=== PATIENT | female | born 2000 | race Caucasian/White ===

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

== ENCOUNTER 2022-01-05 14:30 | Emergency (ER) | payer BC, OTHER, SELFPAY ==
[2022-01-05 14:32] VITALS: BP 150/81; PULSE 75; RESP 16; TEMP 36.8; O2SAT 97; BMI 33.4
--- NOTE | 2022-01-05 15:25 | ED_ITS ---
Documented by User: PEDRO Brown 01/06/22 07:07 HPI - Allergic Reaction General: Chief complaint: Allergic Reaction Stated complaint: RASH AND FEELS THROAT SWELLING Time Seen by Provider: 01/05/22 15:21 History of Present Illness: HPI narrative: Patient is a 21-year-old female comes to the ED with allergic reaction. Symptoms started last night. She started developing a pruritic rash that started on her abdomen and wrapped around her flank to her back bilaterally. Rash also had a burning sensation as well. Today she started feeling some chest tightness and a little bit of throat swelling and tightness as well. By the time she arrived here in the ED her voice started changing a little bit as well. 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 Denies any recent contact with pineapples, soaps, detergents, lotions. Patient did say she received her Covid 19 shot on Tuesday and is unsure if she could be having a reaction from it. Ny ent denies any chance of being and says she is currently on her menstrual period. Associated symptoms: Deny abdominal pain, nausea or vomiting Review of Systems Const: Denies: fever(s), chills or fatigue Eyes: Denies: change in vision or eye discomfort ENMT: Denies: throat pain, odynophagia, nasal discharge or nasal congestion Card: Denies: chest pain, palpitations, edema, swelling of feet/ankles, dyspnea on exertion or orthopnea Resp: Denies: dyspnea, productive cough or non-productive cough GI: Denies: abdominal pain, nausea, vomiting, diarrhea, constipation or hematochezia : Denies: flank pain, dysuria or hematuria Musc: Denies: neck pain, back pain or extremity swelling Skin/Breast: Denies: rash or new lesions Neuro: Denies: headache(s), numbness in extremities or weakness in extremities All/Imm: Reports: urticaria (pruritic rash on abdomen), throat swelling and food intolerance (allergic to pineapple.) [facility] ED PFSH: Medical History 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 History of 2019 novel coronavirus disease (COVID-19) Surgical History H/O knee surgery (~12/2019) ACL reconstruction [place] teeth extracted Family History Mother Anesthesia complication Diabetes Hyperlipidemia Stroke Grandfather CAD (coronary artery disease) Lung disease Family/Other Cancer Suicide paternal grandfather Family history of thyroid problem Maternal great aunt Father Hypertension Grandmother Psychiatric illness Other Chronic kidney disease (CKD) Denies family history of Clotting disorder Dementia Bleeding disorder Family history of premature coronary artery disease Social History Smoking and tobacco status: never smoked Alcohol intake: never Additional social history: - Tobacco use: Denies Alcohol use: Denies Drug use: Denies Female Reproductive History: Date of last menstrual period: 02/12/21 Physical Exam Const: COMMON NORMALS: patient oriented x3 and alert GENERAL APPEARANCE: cooperative and comfortable OTHER: Patient's voice sounded kind of tight and raspy. She says her voice started changing by the time she got to the ED. HENMT: COMMON NORMALS: normocephalic HEAD & SCALP: normocephalic MOUTH: Normal oral and palatal mucosa present, lip normal and tongue normal THROAT: posterior oropharynx normal and uvula midline Neck/C-Spine: COMMON NORMALS: supple GENERAL: Yes normal visual inspection Resp: COMMON NORMALS: normal respiratory effort, No retractions, No use of accessory muscles and clear to auscultation bilaterally AUSCULTATION: clear to auscultation bilaterally Cardio: COMMON NORMALS: regular rate, regular rhythm, S1 normal heart sound present, S2 normal heart sound present, No gallops present (Cardio), No clicks present (Cardio), No murmurs present (Cardio) and Peripheral pulses 2+ throughout RATE: regular rate RHYTHM: regular rhythm HEART SOUNDS: S1 normal heart sound present and S2 normal heart sound present PERIPHERAL PULSES: Peripheral pulses 2+ throughout GI: COMMON NORMALS: Normal to inspection, nondistended, normoactive bowel sounds present, Soft to palpation, non-tender and no masses PALPATION: Yes Soft to palpation : COMMON NORMALS: Yes no CVA tenderness BLADDER/KIDNEY EXAM: Yes no CVA tenderness Back/Pelvis: COMMON NORMALS: no CVA tenderness Extremity: COMMON NORMALS: normal to inspection Neuro: COMMON NORMALS: patient oriented x3 and moves all extremities SENSORIUM/ORIENTATION: Yes alert Skin: NARRATIVE SKIN EXAM: Erythemic maculopapular pruritic rash that starts in the middle of abdomen and wraps around flanks bilaterally and extends to the middle of her back. GENERAL SKIN EXAM: dry skin Course Vital Signs: Vital signs: Vital Signs Temperature 97.9 F 01/05/22 18:04 Pulse Rate 85 01/05/22 18:04 Respiratory Rate 16 01/05/22 14:32 Blood Pressure 116/71 01/05/22 18:04 Pulse Oximetry 100 01/05/22 18:04 MDM - Allergic Reaction EKG Data EKG 1: EKG interpretation date: 01/05/22 Interpretation: Normal sinus rhythm, 78 bpm, no acute findings. No ST segment elevation or depression seen. Discharge Plan Discharge Patient Disposition: Home Clinical Impression: Allergic reaction Qualifiers: Encounter type: initial encounter Qualified Code(s): T78.40XA - Allergy, unspecified, initial encounter Condition: Stable Prescriptions: New prednisone 20 mg tablet 20 mg PO BID 3 Days Qty: 6 0RF No Action epinephrine [EpiPen 2-Ron] 0.3 mg/0.3 mL auto-injector 0.3 mg IM ONCE 0RF albuterol sulfate [ProAir HFA] 90 mcg/actuation HFA aerosol inhaler 2 puff inhalation 6XD PRN (Reason: shortness of breath or wheezing) Qty: 8.5 0RF clindamycin-benzoyl peroxide 1.2 %(1 % base) -5 % gel 1 applic topical DAILY Qty: 45 2RF Rx Instructions: Apply thin film to face chest and back every morning. May bleach clothes. adapalene [Differin] 0.3 % gel with pump 1 applic topical DAILY Qty: 45 2RF Rx Instructions: Apply pea-sized amount to clean dry face nightly (Differin with Pump) fluticasone propionate [Flonase Allergy Relief] 50 mcg/actuation spray,suspension 1 spray intranasal DAILY Qty: 9.9 0RF Rx Instructions: administer into each nostril sertraline 100 mg tablet See Rx Instructions .ROUTE .COMPLEX Qty: 60 5RF Dose Instruction: TAKE 2 TABLETS BY MOUTH EVERY DAY Rx Instructions: TAKE 2 TABLETS BY MOUTH EVERY DAY trazodone 50 mg tablet 50 mg PO .po q hs 30 Days Qty: 30 5RF medroxyprogesterone [Provera] 10 mg tablet 10 mg PO QDAY PRN (Reason: pcos) Qty: 10 6RF acyclovir 400 mg tablet 400 mg PO TID 10 Days Qty: 30 3RF Discharge Orders: Discharge ED (Routine); Ordered 01/05/22 Ordered By: Tony Maxwell Referrals: [facility], [Primary Care Provider] - Discharge Diet: Regular Discharge Activity: Resume usual activity Patient Instructions: Allergic Reaction, Anaphylaxis (ED) Activity Restrictions/Additional Instructions: Follow-up with medical provider as directed in 5 to 7 days for reevaluation. Take medications as prescribed. Return to the ER or your medical provider if condition worsens. Please read and understand discharge instructions. Thank you for choosing [facility] for your healthcare needs today. Please realize this is an emergency room and that we are providing you with a medical screening exam and this may not be complete and all inclusive of all the testing and or work up that you may need to determine your ailment or severity of your illness. It is very important that you follow up as instructed or that you return to the Emergency Department should you have concerns or if your condition changes or worsens in any way. Sign Out Sign Out Data: Patient Sign Out occurred on 01/05/22 at 17:17. Patient's care was discussed, and care was transferred from to Tony Maxwell. Post-Handoff Eval: Patient was reevaluated 1-1/2 hours after epinephrine injection. Patient continues to be symptoms free at this time. Lungs were clear to auscultation. No swelling or other abnormalities were noted. 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 History of 2019 novel coronavirus disease (COVID-19) Surgical History H/O knee surgery (~12/2019) ACL reconstruction [place] teeth extracted Family History Mother Anesthesia complication Diabetes Hyperlipidemia Stroke Grandfather CAD (coronary artery disease) Lung disease Family/Other Cancer Suicide paternal grandfather Family history of thyroid problem Maternal great aunt Father Hypertension Grandmother Psychiatric illness Other Chronic kidney disease (CKD) Denies family history of Clotting disorder Dementia Bleeding disorder Family history of premature coronary artery disease Social History Smoking and tobacco status: never smoked Alcohol intake: never Additional social history: - Tobacco use: Denies Alcohol use: Denies Drug use: Denies Course Vital Signs: Vital signs: Vital Signs Temperature 97.9 F 01/05/22 18:04 Pulse Rate 85 01/05/22 18:04 Respiratory Rate 16 01/05/22 14:32 Blood Pressure 116/71 01/05/22 18:04 Pulse Oximetry 100 01/05/22 18:04 MDM - Allergic Reaction Medical Decision Making 21-year-old female comes in today for concerns of allergic reaction. Patient does have a history of pineapple allergy but has had 3 other reactions requiring epinephrine. Patient does carry epinephrine with her but did not use it prior to arrival to the ER. Patient was given epinephrine due to urticaria crash and difficulty swallowing. Vital signs were normal. Differential diagnosis includes allergic reaction, anaphylaxis, anxiety. Patient was treated for anaphylaxis with epinephrine in the ER. She had return to normal symptoms and was monitored for 1 to 2 hours with no recurrence of symptoms. Patient does have EpiPen at home. 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 Patient reported understanding and agreed to plan. Discharge Plan Discharge Patient Disposition: Home Clinical Impression: Allergic reaction Qualifiers: Encounter type: initial encounter Qualified Code(s): T78.40XA - Allergy, unspecified, initial encounter Condition: Stable Prescriptions: New prednisone 20 mg tablet 20 mg PO BID 3 Days Qty: 6 0RF No Action epinephrine [EpiPen 2-Ron] 0.3 mg/0.3 mL auto-injector 0.3 mg IM ONCE 0RF albuterol sulfate [ProAir HFA] 90 mcg/actuation HFA aerosol inhaler 2 puff inhalation 6XD PRN (Reason: shortness of breath or wheezing) Qty: 8.5 0RF clindamycin-benzoyl peroxide 1.2 %(1 % base) -5 % gel 1 applic topical DAILY Qty: 45 2RF Rx Instructions: Apply thin film to face chest and back every morning. May bleach clothes. adapalene [Differin] 0.3 % gel with pump 1 applic topical DAILY Qty: 45 2RF Rx Instructions: Apply pea-sized amount to clean dry face nightly (Differin with Pump) fluticasone propionate [Flonase Allergy Relief] 50 mcg/actuation spray,suspension 1 spray intranasal DAILY Qty: 9.9 0RF Rx Instructions: administer into each nostril sertraline 100 mg tablet See Rx Instructions .ROUTE .COMPLEX Qty: 60 5RF Dose Instruction: TAKE 2 TABLETS BY MOUTH EVERY DAY Rx Instructions: TAKE 2 TABLETS BY MOUTH EVERY DAY trazodone 50 mg tablet 50 mg PO .po q hs 30 Days Qty: 30 5RF medroxyprogesterone [Provera] 10 mg tablet 10 mg PO QDAY PRN (Reason: pcos) Qty: 10 6RF acyclovir 400 mg tablet 400 mg PO TID 10 Days Qty: 30 3RF Discharge Orders: Discharge ED (Routine); Ordered 01/05/22 Ordered By: Tony Maxwell Referrals: [facility], [Primary Care Provider] - Discharge Diet: Regular Discharge Activity: Resume usual activity Patient Instructions: Allergic Reaction, Anaphylaxis (ED) Activity Restrictions/Additional Instructions: Follow-up with medical provider as directed in 5 to 7 days for reevaluation. Take medications as prescribed. Return to the ER or your medical provider if condition worsens. Please read and understand discharge instructions. Thank you for choosing [facility] for your healthcare needs today. Please realize this is an emergency room and that we are providing you with a medical screening exam and this may not be complete and all inclusive of all the testing and or work up that you may need to determine your ailment or severity of your illness. It is very important that you follow up as instructed or that you return to the Emergency Department should you have concerns or if your condition changes or worsens in any way. Sign Out Sign Out Data: Patient Sign Out occurred on 01/05/22 at 17:17. Patient's care was discussed, and care was transferred from to Tony Maxwell. Post-Handoff Eval: Patient was reevaluated 1-1/2 hours after epinephrine injection. Patient continues to be symptoms free at this time. Lungs were clear to auscultation. No swelling or other abnormalities were noted. Coding Level of Care Code ED [employer] App[employer] Tech for Vito Fwd Exam Comprehensive
[2022-01-05] MEDS: sodium chloride 0.9% 500 ML IV (16:18)
[2022-01-05] MEDS: EPINEPHrine 1 mg/mL INJ 0.3 MG IM (16:20)
[2022-01-05] MEDS: famotidine 20 mg/2 mL INJ 40 MG IVP (16:23)
[2022-01-05] MEDS: diphenhydrAMINE 50 mg/mL SDV 1mL 25 MG IVP (16:24)
[2022-01-05 18:04] VITALS: BP 116/71; PULSE 85; TEMP 36.6; O2SAT 100
== END 2022-01-05 18:06 | disposition home or self-care (01) ==
PROVIDERS: Emergency Provider Nurse Practitioner Family
DX: T78.40XA Allergy, unspecified, initial encounter (principal)
CPT/HCPCS: 96361; 96372; 96374; 96375; 99283; 99291; 99292; J0171; J1200; J2930; J3490; J7040

== ENCOUNTER 2022-05-20 02:10 | Emergency (ER) | payer OTHER, BC, SELFPAY ==
--- NOTE | 2022-05-20 02:18 | XRR_ITS ---
PROCEDURE INFORMATION: Exam: XR Chest Exam date and time: 05/20/2022 2:30 AM Age: 21 years old Clinical indication: Angina; Additional info: Chest pain TECHNIQUE: Imaging protocol: Radiologic exam of the chest. Views: 1 view. COMPARISON: CR XR chest 2V* [id number] 10/27/2020 10:26 AM FINDINGS: Lungs: Unremarkable. No consolidation. Pleural spaces: Unremarkable. No pleural effusion. No pneumothorax. Heart/Mediastinum: Unremarkable. No cardiomegaly. Bones/joints: Unremarkable. XR/XR chest 1V portable [id number] IMPRESSION: No acute findings.
--- NOTE | 2022-05-20 02:18 | ECG_ITS ---
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 Measurements Intervals [place] Rate: 78 P: 40 IA: 176 QRS: 18 QRSD: 106 T: 4 QT: 386 QTc: 441 Interpretive Statements SINUS RHYTHM WITH SINUS ARRHYTHMIA No previous ECG available for comparison Electronically Signed On 05-20-2022 18:55:56 CDT by Arnel Saxena M.D. [id number]
[2022-05-20 02:23] VITALS: BP 130/76; PULSE 77; RESP 16; TEMP 36.4; O2SAT 97
--- NOTE | 2022-05-20 02:24 | W.ED.CHESTPA ---
HPI - Chest Pain General: Chief Complaint: Chest Pain Stated Complaint: chest pain Time Seen by Provider: 05/20/22 02:20 Source: patient Mode of arrival: ambulatory Limitations: no limitations History of Present Illness: 21-year-old female who states that she had awoken 2 hours ago with a burning sensation in her chest. States it was a burning in her left chest she tried to take Tums without any relief. She denies any shortness of breath she denies any nausea vomiting or diarrhea. Patient denies any cough denies any fever. 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 History of 2019 novel coronavirus disease (COVID-19) Surgical History H/O knee surgery (~12/2019) ACL reconstruction [place] teeth extracted Family History Mother Anesthesia complication Diabetes Hyperlipidemia Stroke Grandfather CAD (coronary artery disease) Lung disease Family/Other Cancer Suicide paternal grandfather Family history of thyroid problem Maternal great aunt Father Hypertension Grandmother Psychiatric illness Other Chronic kidney disease (CKD) Denies family history of Clotting disorder Dementia Bleeding disorder Family history of premature coronary artery disease Social History Smoking and tobacco status: never smoked Alcohol intake: never Additional social history: - Tobacco use: Denies Alcohol use: Denies Drug use: Denies Female Reproductive History: Date of last menstrual period: 02/12/21 Physical Exam Const: COMMON NORMALS: no acute distress, patient oriented x3 and healthy appearing HENMT: COMMON NORMALS: normocephalic and atraumatic HEAD & SCALP: normocephalic and atraumatic Eye: COMMON NORMALS: Equal, round and reactive pupils present and EOMs intact bilaterally PUPIL: Yes Equal, round and reactive pupils present Neck/C-Spine: COMMON NORMALS: full ROM and supple Chest: COMMONS NORMALS: normal inspection of the chest and normal palpation of entire chest wall Resp: COMMON NORMALS: normal respiratory effort, No retractions, No use of accessory muscles and clear to auscultation bilaterally AUSCULTATION: clear to auscultation bilaterally Cardio: COMMON NORMALS: regular rate, regular rhythm and No murmurs present (Cardio) RATE: regular rate RHYTHM: regular rhythm GI: COMMON NORMALS: Normal to inspection, nondistended, normoactive bowel sounds present, Soft to palpation, non-tender and no masses PALPATION: Yes Soft to palpation Extremity: COMMON NORMALS: normal to inspection and full ROM Neuro: COMMON NORMALS: patient oriented x3, moves all extremities and no focal motor deficits Psych: COMMON NORMALS: mental status grossly normal, Normal thought process present and cooperative THOUGHT PROCESS: Normal thought process present Skin: COMMON NORMALS: no rashes or lesions noted and no wounds GENERAL SKIN EXAM: no rashes or lesions noted Course Vital Signs: Vital signs: Vital Signs Temperature 97.6 F 05/20/22 02:23 Pulse Rate 77 05/20/22 02:25 Respiratory Rate 18 05/20/22 02:30 Blood Pressure 128/80 05/20/22 02:25 Pulse Oximetry 97 05/20/22 02:30 [facility] - Chest Pain Medical Decision Making Patient presents here with chest pain that is atypical in nature likely could be her reflexes burning pain was improved with GI cocktail troponin here is normal EKG and x-ray are normal she is stable for discharge. She has no signs of dissection or pulmonary embolism. Lab Data : 05/20/22 02:30 05/20/22 02:30 Laboratory Results WBC 12.8 10^3/uL (4.5-13.0) 05/20/22 02:30 RBC 4.31 10^6/uL (4.1-5.3) 05/20/22 02:30 Hgb 13.0 g/dL (11.5-15.3) 05/20/22 02:30 Hct 39.0 % (37.0-47.0) 05/20/22 02:30 MCV 90.5 fl (81-99) 05/20/22 02:30 MCH 30.2 pg (28.0-34.0) 05/20/22 02:30 MCHC 33.3 g/dL (30.0-36.0) 05/20/22 02:30 RDW 12.4 % (12.1-15.1) 05/20/22 02:30 Plt Count 404 10^3/cmm (130-400) H 05/20/22 02:30 MPV 9.1 fL (7.4-10.4) 05/20/22 02:30 Neut % (Auto) 58.3 % 05/20/22 02:30 Lymph % (Auto) 32.8 % 05/20/22 02:30 [place] % (Auto) 6.1 % 05/20/22 02:30 Eos % (Auto) 2.3 % 05/20/22 02:30 Baso % (Auto) 0.3 % 05/20/22 02:30 Neut # (Auto) 7.44 10^3/uL (1.8-8.0) 05/20/22 02:30 Lymph # (Auto) 4.2 10^3/uL (1.5-6.5) 05/20/22 02:30 [place] # (Auto) 0.8 10^3/uL (0.2-0.9) 05/20/22 02:30 Eos # (Auto) 0.3 10^3/uL (0.0-0.8) 05/20/22 02:30 Baso # (Auto) 0.0 10^3/uL (0.0-0.1) 05/20/22 02:30 Nucleated RBC % (auto) 0 % 05/20/22 02:30 Nucleated RBCs # 0.0 /100WBC 05/20/22 02:30 Sodium 139 mmol/L (136-145) 05/20/22 02:30 Potassium 3.6 mmol/L (3.5-5.1) 05/20/22 02:30 Chloride 103 mmol/L (98-107) 05/20/22 02:30 Carbon Dioxide 25 mmol/L (22-29) 05/20/22 02:30 Anion Gap 14.6 (5-19) 05/20/22 02:30 BUN 11 mg/dL (6-20) 05/20/22 02:30 Creatinine 0.7 mg/dL (0.5-0.9) 05/20/22 02:30 GFR Calculation 107.8 mL/min (90-130) 05/20/22 02:30 Glucose 101 mg/dL (65-115) 05/20/22 02:30 Calculated Osmolality 288 mOsm/kg (285-295) 05/20/22 02:30 Calcium 9.0 mg/dL (8.5-10.5) 05/20/22 02:30 Total Bilirubin 0.3 mg/dL (0.15-1.2) 05/20/22 02:30 AST 17 U/L (0-32) 05/20/22 02:30 ALT 14 U/L (0-33) 05/20/22 02:30 Alkaline Phosphatase 74 IU/L (35-105) 05/20/22 02:30 Troponin T Baseline 6 ng/L (0-10) 05/20/22 02:30 Total Protein 7.5 g/dL (6.6-8.7) 05/20/22 02:30 Albumin 4.5 g/dL (3.5-5.2) 05/20/22 02:30 Globulin 3.0 g/dL (1.3-4.6) 05/20/22 02:30 EKG Data EKG 1: I personally reviewed and interpreted this EKG as follows: EKG interpretation date: 05/20/22 EKG interpretation time: 02:21 Interpretation: nsr hr [address] or twave abnormalities qrs 106 qtc 419 Discharge Plan Discharge Patient Disposition: Home Clinical Impression: Chest pain Condition: Stable Prescriptions: No Action epinephrine [EpiPen 2-Ron] 0.3 mg/0.3 mL auto-injector 0.3 mg IM ONCE 0RF albuterol sulfate [ProAir HFA] 90 mcg/actuation HFA aerosol inhaler 2 puff inhalation 6XD PRN (Reason: shortness of breath or wheezing) Qty: 8.5 0RF clindamycin-benzoyl peroxide 1.2 %(1 % base) -5 % gel 1 applic topical DAILY Qty: 45 2RF Rx Instructions: Apply thin film to face chest and back every morning. May bleach clothes. adapalene [Differin] 0.3 % gel with pump 1 applic topical DAILY Qty: 45 2RF Rx Instructions: Apply pea-sized amount to clean dry face nightly (Differin with Pump) fluticasone propionate [Flonase Allergy Relief] 50 mcg/actuation spray,suspension 1 spray intranasal DAILY Qty: 9.9 0RF Rx Instructions: administer into each nostril medroxyprogesterone [Provera] 10 mg tablet 10 mg PO QDAY PRN (Reason: pcos) Qty: 10 6RF trazodone 50 mg tablet 50 mg PO .po q hs 30 Days Qty: 30 2RF Rx Instructions: needs appt acyclovir 400 mg tablet 400 mg PO TID 10 Days Qty: 30 3RF sertraline 100 mg tablet 200 mg PO .once daily 30 Days Qty: 60 1RF Discharge Orders: Discharge ED (Routine); Ordered 05/20/22 Ordered By: Christina Larson Discharge Diet: Advance as tolerated Discharge Activity: Resume usual activity Patient Instructions: Chest Pain (ED) Coding Level of Care Code ED Credit Collector for Vito Fwtra Exam Comprehensive
[2022-05-20 02:25] VITALS: BP 128/80; PULSE 77; RESP 18; O2SAT 96
[2022-05-20 02:30] VITALS: RESP 18; O2SAT 97
[2022-05-20] MEDS: morphine 4 mg/mL SDV 1 mL IVP (02:30)
[2022-05-20] MEDS: ondansetron 2 mg/ML SDV 2 mL 4 MG IVP (02:30)
[2022-05-20 02:37] LABS: Basophils % 0.3 %; Eosinophils # 0.3 10^3/uL (0.0-0.8); Eosinophils % 2.3 %; Lymphocytes # 4.2 10^3/uL (1.5-6.5); Lymphocytes % 32.8 %; Mean Corpuscular HGB Conc 33.3 g/dL (30.0-36.0); Mean Corpuscular Hemoglobin 30.2 pg (28.0-34.0); Mean Corpuscular Volume 90.5 fl (81-99); Mean Platelet Volume 9.1 fL (7.4-10.4); Monocytes # 0.8 10^3/uL (0.2-0.9); Monocytes % 6.1 %; Neutrophils # 7.44 10^3/uL (1.8-8.0); Neutrophils % 58.3 %; Nucleated Red Blood Cells % 0 %; Platelet Count 404 10^3/cmm (130-400); Red Blood Count 4.31 10^6/uL (4.1-5.3); Red Cell Distribution Width 12.4 % (12.1-15.1); White Blood Count 12.8 10^3/uL (4.5-13.0)
[2022-05-20] MEDS: lidocaine 2% viscous 15 ML, aluminum-mag hydrox-simethicon 30 ML, sucralfate oral liq 1 GM PO (02:37)
[2022-05-20 02:57] LABS: Alanine Aminotransferase 14 U/L (0-33); Albumin Level 4.5 g/dL (3.5-5.2); Alkaline Phosphatase 74 IU/L (35-105); Anion Gap 14.6 (5-19); Aspartate Amino Transferase 17 U/L (0-32); Blood Urea Nitrogen 11 mg/dL (6-20); Carbon Dioxide 25 mmol/L (22-29); Chloride 103 mmol/L (98-107); Glomerular Filtration Rate 107.8 mL/min (90-130); Glucose 101 mg/dL (65-115); Osmolality Calculated 288 mOsm/kg (285-295); Potassium 3.6 mmol/L (3.5-5.1); Sodium 139 mmol/L (136-145); Total Bilirubin 0.3 mg/dL (0.15-1.2); Total Protein 7.5 g/dL (6.6-8.7)
[2022-05-20 02:58] LABS: Troponin(5th) Baseline 6 ng/L (0-10)
[2022-05-20 03:57] VITALS: BP 109/87; RESP 18; O2SAT 97
== END 2022-05-20 03:59 | disposition home or self-care (01) ==
PROVIDERS: Emergency Provider Emergency Medicine
DX: R07.9 Chest pain, unspecified (principal)
CPT/HCPCS: 71045; 80053; 84484; 85025; 93005; 96374; 96375; 99285; J2270; J2405

== ENCOUNTER → 2022-06-09 15:32 | Outpatient (BNVA) | payer OTHER, SELFPAY | PROVIDERS: Visit Provider Nurse Practitioner Women's Health | DX: Z11.3 Encounter for screening for infections with a predominantly sexual mode of transmission (principal); A60.09 Herpesviral infection of other urogenital tract; E28.2 Polycystic ovarian syndrome; Z01.419 Encounter for gynecological examination (general) (routine) without abnormal findings; A60.04 Herpesviral vulvovaginitis | CPT/HCPCS: 86592; 86803; 87340; 87491; 87591; 87661; 87806 ==

== ENCOUNTER 2022-07-08 19:18 | Emergency (ER) | payer OTHER, BC, SELFPAY ==
[2022-07-08 19:30] VITALS: BP 133/79; PULSE 69; RESP 16; TEMP 36.9; O2SAT 98; BMI 34.0
--- NOTE | 2022-07-08 20:32 | W.ED.PREGNAN ---
HPI - General: Chief complaint: Nausea/Vomiting/Diarrhea Stated complaint: wants preg test Time Seen by Provider: 07/08/22 19:32 History of Present Illness: Patient is a 21-year-old female comes to the ED for test. Patient says her period is approximately over a week late. Her last period was May 29. She had some very light spotting and bleeding from June 21- June 23 which was unusual for her. She usually has normal monthly periods. She also states that she usually has some abdominal cramping leading up to her period but this month she has not had any abdominal cramping. She took an at-home test but it was inconclusive. Denies any fever, chills, abdominal pain, nausea/vomiting, dysuria, hematuria, vaginal bleeding or vaginal itching. Patient endorses having some cloudy appearing vaginal discharge. Date of Last Menstrual Period: 05/29/22 Associated symptoms: Deny abdominal pain, dysuria, headache(s), nausea or vomiting Review of Systems Const: Denies: fever(s), chills or fatigue Eyes: Denies: change in vision or eye discomfort ENMT: Denies: throat pain, odynophagia, nasal discharge or nasal congestion Card: Denies: chest pain, palpitations, edema, swelling of feet/ankles, dyspnea on exertion or orthopnea Resp: Denies: dyspnea, productive cough or non-productive cough GI: Denies: abdominal pain, nausea, vomiting, diarrhea, constipation or hematochezia : Denies: flank pain, dysuria, hematuria or vaginal bleeding Musc: Denies: neck pain, back pain or extremity swelling Skin/Breast: Denies: rash or new lesions Neuro: Denies: headache(s), numbness in extremities or weakness in extremities PFS ED PFSH: Medical History 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 Dowell Surgical History H/O knee surgery (~12/2019) ACL reconstruction [place] teeth extracted Family History Mother Diabetes Hyperlipidemia Stroke Father Hypertension Denies family history of Colon cancer Ovarian cancer Heart disease Breast cancer Uterine cancer Thyroid disease Female Reproductive History: Date of last menstrual period: 05/29/22 Physical Exam Const: COMMON NORMALS: no acute distress, patient oriented x3, healthy appearing and alert HENMT: COMMON NORMALS: normocephalic HEAD & SCALP: normocephalic MOUTH: Normal oral and palatal mucosa present THROAT: posterior oropharynx normal and uvula midline Neck/C-Spine: COMMON NORMALS: supple GENERAL: Yes normal visual inspection Resp: COMMON NORMALS: normal respiratory effort, No retractions, No use of accessory muscles and clear to auscultation bilaterally AUSCULTATION: clear to auscultation bilaterally Cardio: COMMON NORMALS: regular rate, regular rhythm, S1 normal heart sound present, S2 normal heart sound present, No gallops present (Cardio), No clicks present (Cardio), No murmurs present (Cardio) and Peripheral pulses 2+ throughout RATE: regular rate RHYTHM: regular rhythm HEART SOUNDS: S1 normal heart sound present and S2 normal heart sound present PERIPHERAL PULSES: Peripheral pulses 2+ throughout GI: COMMON NORMALS: Normal to inspection, nondistended, normoactive bowel sounds present, Soft to palpation, non-tender and no masses PALPATION: Yes Soft to palpation : COMMON NORMALS: Yes no CVA tenderness BLADDER/KIDNEY EXAM: Yes no CVA tenderness Back/Pelvis: COMMON NORMALS: no CVA tenderness Neuro: COMMON NORMALS: patient oriented x3 SENSORIUM/ORIENTATION: Yes alert GAIT: Yes Normal gait present Skin: GENERAL SKIN EXAM: dry skin Course Vital Signs: Vital signs: Vital Signs Temperature 98.5 F 07/08/22 19:30 Pulse Rate 69 07/08/22 19:30 Respiratory Rate 16 07/08/22 19:30 Blood Pressure 133/79 07/08/22 19:30 Pulse Oximetry 98 07/08/22 19:30 Oxygen Delivery Me thod 07/08/22 19:30 MDM - OB/Uterine Contractions Medical Decision Making Patient is a 21-year-old female comes to the ED for test. Patient says her period is approximately over a week late. Her last period was May 29. Patient denies any fever, nausea/vomiting, abdominal pain or vaginal bleeding. Vitals are stable. Exam of patient is benign. hCG serum was negative. Patient was stable for discharge home and diagnosed with encounter for test with a negative result. She was told to follow-up with her PCP in the next week for reevaluation. Return to ED precautions given. Patient understood and agreed with plan. Lab Data I reviewed the patient's lab results. Laboratory Results HCG, Qual Negative (Negative) 07/08/22 19:40 Discharge Plan Discharge Patient Disposition: Home Clinical Impression: Encounter for test with result negative Condition: Stable Prescriptions: No Action epinephrine [EpiPen 2-Ron] 0.3 mg/0.3 mL auto-injector 0.3 mg IM ONCE albuterol sulfate [ProAir HFA] 90 mcg/actuation HFA aerosol inhaler 2 puff inhalation 6XD PRN (Reason: shortness of breath or wheezing) Qty: 8.5 0RF acyclovir 400 mg tablet 400 mg PO .COMPLEX Qty: 90 6RF Rx Instructions: 400 mg PO bid for suppression; increase to 800mg TID x 2 days with outbreaks sertraline 100 mg tablet 200 mg PO .once daily 90 Days Qty: 180 1RF trazodone 50 mg tablet 50 mg PO .po q hs 90 Days Qty: 90 1RF Discharge Orders: Discharge ED (Routine); Ordered 07/08/22 Ordered By: Paco Turcios Discharge Diet: Regular Discharge Activity: Resume usual activity Activity Restrictions/Additional Instructions: Follow-up with medical provider as directed. Continue taking all home medications as previously prescribed. Return to the ER or your medical provider if condition worsens. Please read and understand discharge instructions. Thank you for choosing [facility] for your healthcare needs today. Please realize this is an emergency room and that we are providing you with a medical screening exam and this may not be complete and all inclusive of all the testing and or work up that you may need to determine your ailment or severity of your illness. It is very important that you follow up as instructed or that you return to the Emergency Department should you have concerns or if your condition changes or worsens in any way. Coding Level of Care Code ED Pen Tender for Vito Banerjee Exam Comprehensive
[2022-07-08 20:34] LABS: HCG, Serum Qual Negative (Negative)
== END 2022-07-08 21:01 | disposition home or self-care (01) ==
PROVIDERS: Emergency Provider Physician Assistant
DX: Z32.02 Encounter for pregnancy test, result negative (principal)
CPT/HCPCS: 84703; 99283

== ENCOUNTER 2022-08-03 07:23 | Emergency (ER) | payer OTHER, BC, SELFPAY ==
[2022-08-03 07:32] VITALS: BP 125/81; PULSE 78; RESP 16; TEMP 36.9; O2SAT 97; BMI 34.0
--- NOTE | 2022-08-03 07:43 | XR_ITS ---
WS: [id number] XR chest 1V portable [id number] REASON FOR EXAM: covid symptoms FINDINGS: The heart and mediastinum are within normal limits. There is calcified granulomatous disease bilaterally. Compared to the previous examination of 05/20/2022 there are somewhat subtle reticular interstitial op acities in both lower lungs which may have been present on the previous examination but much less pro minent. No other interval change or new finding. XR/XR chest 1V portable [id number] IMPRESSION: Findings compatible with subacute pneumonitis.
--- NOTE | 2022-08-03 07:45 | ED_ITS ---
HPI - General Adult General: Chief complaint: General Medical Stated complaint: headache, body aches, sinus problems Time Seen by Provider: 08/03/22 07:35 History of Present Illness: Patient is a 21-year-old female comes to the ED with upper respiratory symptoms. She endorses having cough, nasal congestion and drainage, fatigue, headache and body aches. Symptoms started approximately 2 days ago. Denies any fever, chills, shortness of breath, abdominal pain, nausea/vomiting, bladder or bowel symptoms. Denies any known COVID exposure. Associated symptoms: Reports headache(s); Deny chest pain, dyspnea, nausea, rash, palpitations or vomiting Review of Systems Const: Reports: body aches and fatigue; Denies: fever(s) or chills Eyes: Denies: change in vision or eye discomfort ENMT: Reports: nasal discharge and nasal congestion; Denies: throat pain or odynophagia Card: Denies: chest pain, palpitations, edema, swelling of feet/ankles, dyspnea on exertion or orthopnea Resp: Reports: non-productive cough; Denies: dyspnea or productive cough GI: Denies: abdominal pain, nausea, vomiting, diarrhea, constipation or hematochezia : Denies: flank pain, dysuria or hematuria Musc: Denies: neck pain, back pain or extremity swelling Skin/Breast: Denies: rash or new lesions Neuro: Reports: headache(s); Denies: numbness in extremities or weakness in extremities [facility] ED PFSH: Medical History 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 Dowell Surgical History H/O knee surgery (~12/2019) ACL reconstruction [place] teeth extracted Family History Mother Diabetes Hyperlipidemia Stroke Father Hypertension Denies family history of Colon cancer Ovarian cancer Heart disease Breast cancer Uterine cancer Thyroid disease Female Reproductive History: Date of last menstrual period: 07/27/22 Physical Exam Const: COMMON NORMALS: no acute distress, patient oriented x3, healthy appearing and alert GENERAL APPEARANCE: cooperative and comfortable HENMT: COMMON NORMALS: normocephalic HEAD & SCALP: normocephalic MOUTH: Normal oral and palatal mucosa present THROAT: posterior oropharynx normal and uvula midline Eye: COMMON NORMALS: Equal, round and reactive pupils present and conjunctivae normal CONJUNCTIVA: Yes conjunctivae normal PUPIL: Yes Equal, round and reactive pupils present Neck/C-Spine: COMMON NORMALS: supple GENERAL: Yes normal visual inspection Resp: COMMON NORMALS: normal respiratory effort, No retractions, No use of accessory muscles and clear to auscultation bilaterally AUSCULTATION: clear to auscultation bilaterally Cardio: COMMON NORMALS: regular rate, regular rhythm, S1 normal heart sound present, S2 normal heart sound present, No gallops present (Cardio), No clicks present (Cardio), No murmurs present (Cardio) and Peripheral pulses 2+ throughout RATE: regular rate RHYTHM: regular rhythm HEART SOUNDS: S1 normal heart sound present and S2 normal heart sound present PERIPHERAL PULSES: Peripheral pulses 2+ throughout GI: COMMON NORMALS: Normal to inspection, nondistended, normoactive bowel sounds present, Soft to palpation, non-tender and no masses PALPATION: Yes Soft to palpation : COMMON NORMALS: Yes no CVA tenderness BLADDER/KIDNEY EXAM: Yes no CVA tenderness Back/Pelvis: COMMON NORMALS: no CVA tenderness Extremity: COMMON NORMALS: normal to inspection Neuro: COMMON NORMALS: patient oriented x3 SENSORIUM/ORIENTATION: Yes alert GAIT: Yes Normal gait present Skin: GENERAL SKIN EXAM: dry skin Course Vital Signs: Vital signs: Vital Signs Temperature 98.4 F 08/03/22 08:46 Pulse Rate 78 08/03/22 08:46 Respiratory Rate 16 08/03/22 08:46 Blood Pressure 125/81 08/03/22 08:46 Pulse Oximetry 97 08/03/22 08:46 [facility] - General Adult Medical Decision Making Patient is a 21-year-old female comes to the ED with upper respiratory symptoms. She endorses having cough, nasal congestion and drainage, fatigue, headache and body aches. Vitals are stable. Patient appears nontoxic and in no acute distress or pain. Exam is benign. Chest x-ray shows no pneumonia. Influenza and COVID were negative. Rhinovirus positive. Patient diagnosed with viral syndrome and was stable for discharge home. Follow-up with PCP in the next week for reevaluation. Return to ED precautions given. Patient understood and agreed with plan. Lab Data I reviewed the patient's lab results. Radiology Impressions Chest X-Ray 08/03/22 07:43 IMPRESSION: Findings compatible with subacute pneumonitis. Laboratory Results Coronavirus 229E (PCR) Not detected (NOT DETECT) 08/03/22 07:50 Human Metapneumovir PCR Not detected (NOT DETECT) 08/03/22 09:48 Influenza Type A Ag Negative (Negative) 08/03/22 07:50 Influenza Type B Ag Negative (Negative) 08/03/22 07:50 Entero/Rhino (PCR) Detected (NOT DETECT) A 08/03/22 09:48 SARS-CoV-2 (PCR) Not detected (NOT DETECT) 08/03/22 07:50 Discharge Plan Discharge Patient Disposition: Home Clinical Impression: Viral syndrome Condition: Stable Prescriptions: No Action epinephrine [EpiPen 2-Ron] 0.3 mg/0.3 mL auto-injector 0.3 mg IM ONCE albuterol sulfate [ProAir HFA] 90 mcg/actuation HFA aerosol inhaler 2 puff inhalation 6XD PRN (Reason: shortness of breath or wheezing) Qty: 8.5 0RF acyclovir 400 mg tablet 400 mg PO .COMPLEX Qty: 90 6RF Rx Instructions: 400 mg PO bid for suppression; increase to 800mg TID x 2 days with outbreaks sertraline 100 mg tablet 200 mg PO .once daily 90 Days Qty: 180 1RF trazodone 50 mg tablet 50 mg PO .po q hs 90 Days Qty: 90 1RF medroxyprogesterone [Provera] 10 mg tablet 10 mg PO DAILY Qty: 10 0RF Discharge Orders: Discharge ED (Routine); Ordered 08/03/22 Ordered By: Paco Turcios Referrals: Rachel Dowell DO [Primary Care Provider] - Discharge Diet: Regular Discharge Activity: Increase activity as tolerated Patient Instructions: Viral Syndrome (ED) Activity Restrictions/Additional Instructions: Follow-up with medical provider as directed in the next 5 to 7 days for reevaluation. COVID and influenza test are pending and results should be back within the next hour, so contact [facility] lab to find out test results. Drink plenty of fluids and stay hydrated. Take [id number] Tylenol or ibuprofen for any fevers. Take [id number] medications to treat symptoms as needed. Return to the ER or your medical provider if condition worsens. Please read and understand discharge instructions. Thank you for choosing [facility] for your healthcare needs today. Please realize this is an emergency room and that we are providing you with a medical screening exam and this may not be complete and all inclusive of all the testing and or work up that you may need to determine your ailment or severity of your illness. It is very important that you follow up as instructed or that you return to the Emergency Department should you have concerns or if your condition changes or worsens in any way. Coding Level of Care Code ED Fabric Inspector for Vito Banerjee Exam Comprehensive
[2022-08-03 08:17] LABS: Influenza A by IFA Negative (Negative)
[2022-08-03 08:18] LABS: Influenza B by IFA Negative (Negative)
[2022-08-03 08:46] VITALS: BP 125/81; PULSE 78; RESP 16; TEMP 36.9; O2SAT 97
[2022-08-03 09:45] LABS: Adenovirus Not Detected (NOT DETECT); Chlamydia Pneumoniae Not Detected (NOT DETECT); Coronavirus 229E,HKU1,NL63,OC4 Not Detected (NOT DETECT); Human Metapneumovirus Not Detected (NOT DETECT); Human Rhinovirus/Enterovirus Detected (NOT DETECT); Influenza A Not Detected (NOT DETECT); Influenza A H1 Not Detected (NOT DETECT); Influenza A H1-2009 Not Detected (NOT DETECT); Influenza A H3 Not Detected (NOT DETECT); Influenza B Not Detected (NOT DETECT); Mycoplasma Pneumoniae Not Detected (NOT DETECT); Parainfluenza Virus Type 1 Not Detected (NOT DETECT); Parainfluenza Virus Type 2 Not Detected (NOT DETECT); Parainfluenza Virus Type 3 Not Detected (NOT DETECT); Parainfluenza Virus Type 4 Not Detected (NOT DETECT); Respiratory Syncytial Virus A Not Detected (NOT DETECT); Respiratory Syncytial Virus B Not Detected (NOT DETECT); SARS-COV-2 Not Detected (NOT DETECT)
[2022-08-03 09:48] LABS: Human Metapneumovirus Not Detected (NOT DETECT); Human Rhinovirus/Enterovirus Detected (NOT DETECT); Results from Genmark
== END 2022-08-03 08:46 | disposition home or self-care (01) ==
PROVIDERS: Emergency Provider Physician Assistant; PCP Family Medicine
DX: B34.9 Viral infection, unspecified (principal); Z20.822 Contact with and (suspected) exposure to COVID-19
CPT/HCPCS: 71045; 87635; 87801; 87804; 99284

== ENCOUNTER → 2022-10-24 16:53 | Outpatient (BNVA) | payer OTHER, SELFPAY | PROVIDERS: PCP Family Medicine; Visit Provider Nurse Practitioner Family | DX: J02.9 Acute pharyngitis, unspecified (principal); J11.1 Influenza due to unidentified influenza virus with other respiratory manifestations; H66.91 Otitis media, unspecified, right ear | CPT/HCPCS: 87071; 87400; 87880 ==

== ENCOUNTER 2022-11-05 17:12 | Emergency (ER) | payer OTHER, BC, SELFPAY ==
[2022-11-05 17:16] VITALS: BP 135/82; PULSE 89; RESP 16; TEMP 36.9; O2SAT 99
[2022-11-05] MEDS: EPINEPHrine 1 mg/mL INJ 0.3 MG IM (17:47)
[2022-11-05] MEDS: famotidine 20 mg/2 mL INJ IVP (17:50)
[2022-11-05] MEDS: diphenhydrAMINE 50 mg/mL SDV 1mL IVP (17:50)
[2022-11-05 18:07] VITALS: PULSE 73; RESP 18; O2SAT 97
--- NOTE | 2022-11-05 18:07 | PC.NURSE ---
on pt arrival to back of ER. pt appears to have increased work of breathing. pt lung sounds are clear throughout. oral mucosa pink and moist, no oral edema noted. pt now reports improvement of symptoms after medications given. pt appears more comfortable
--- NOTE | 2022-11-05 18:17 | W.ED.ALLEREA ---
HPI - Allergic Reaction General: Chief complaint: Allergic Reaction Stated complaint: allergic rxn Time Seen by Provider: 11/05/22 17:30 Source: patient Mode of arrival: ambulatory Limitations: no limitations History of Present Illness: HPI narrative: Patient presents to the emergency department today for concerns of allergic reaction. 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 Patient states she was on the other side of the room but started having throat tightness and suspected allergic reaction. Patient had an EpiPen but states it is in her car. Patient sounds stridorous but no obvious signs of angioedema of the lips or tongue. 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 Dowell Surgical History H/O knee surgery (~12/2019) ACL reconstruction [place] teeth extracted Family History Mother Diabetes Hyperlipidemia Stroke Father Hypertension Denies family history of Colon cancer Ovarian cancer Heart disease Breast cancer Uterine cancer Thyroid disease Female Reproductive History: Date of last menstrual period: 07/27/22 Physical Exam Const: COMMON NORMALS: no acute distress, patient oriented x3 and alert HENMT: OTHER: No swelling of the lips or tongue. Airway is patent in the posterior pharynx. Eye: COMMON NORMALS: Equal, round and reactive pupils present, EOMs intact bilaterally and conjunctivae normal CONJUNCTIVA: Yes conjunctivae normal PUPIL: Yes Equal, round and reactive pupils present Neck/C-Spine: COMMON NORMALS: no JVD Lymph: LYMPHATIC: no lymphadenopathy noted Resp: OTHER: Patient has what sounds like inspiratory stridor however, her lungs are clear to auscultation. Patient is breathing rapidly. Cardio: COMMON NORMALS: no JVD and regular rate RATE: regular rate : COMMON NORMALS: Yes no CVA tenderness BLADDER/KIDNEY EXAM: Yes no CVA tenderness Back/Pelvis: COMMON NORMALS: no CVA tenderness, thoracic and lumbar spine normal to inspection and thoraco-lumbar ROM normal Extremity: COMMON NORMALS: normal to inspection, full ROM and no pedal edema Neuro: COMMON NORMALS: patient oriented x3 SENSORIUM/ORIENTATION: Yes alert Skin: COMMON NORMALS: no rashes or lesions noted and turgor normal GENERAL SKIN EXAM: no rashes or lesions noted and turgor normal Course Vital Signs: Vital signs: Vital Signs Temperature 98.5 F 11/05/22 17:16 Pulse Rate 77 11/05/22 18:30 Respiratory Rate 20 H 11/05/22 18:30 Blood Pressure 139/79 11/05/22 18:30 Pulse Oximetry 98 11/05/22 18:30 Oxygen Delivery Me thod 11/05/22 18:30 MDM - Allergic Reaction Medical Decision Making There was some difficulty initially getting the IV access for the patient so we did opt for IM epinephrine while waiting for the IV access. IV access was eventually obtained and patient was able to receive diphenhydramine, Pepcid, and Solu-Medrol. I personally checked on this patient multiple times and patient no longer had sounds of stridor. Patients breathing was much more relaxed and was 98% on room air. Patient has full resolution of her symptoms after approximately 2 to 2-1/2 hours after medication administration. Patient was sent home to continue monitoring for any signs of rebound response. Patient is to keep her EpiPen close to her tonight. If for any reason symptoms return, patient should administer her epinephrine and present to the emergency department. Differential Diagnosis Likely anaphylaxis, allergic reaction, angioedema, contact dermatitis, adverse reaction to drug and urticaria Discharge Plan Discharge Patient Disposition: Home Clinical Impression: Allergic reaction Condition: Stable Prescriptions: No Action epinephrine [EpiPen 2-Ron] 0.3 mg/0.3 mL auto-injector 0.3 mg IM ONCE albuterol sulfate [ProAir HFA] 90 mcg/actuation HFA aerosol inhaler 2 puff inhalation 6XD PRN (Reason: shortness of breath or wheezing) Qty: 8.5 0RF acyclovir 400 mg tablet 400 mg PO .COMPLEX Qty: 90 6RF Rx Instructions: 400 mg PO bid for suppression; increase to 800mg TID x 2 days with outbreaks sertraline 100 mg tablet 200 mg PO .once daily 90 Days Qty: 180 1RF medroxyprogesterone [Provera] 10 mg tablet 10 mg PO DAILY Qty: 10 0RF trazodone 50 mg tablet See Rx Instructions .ROUTE .COMPLEX Qty: 30 2RF Dose Instruction: take one tab BY MOUTH EVERY DAY AT BEDTIME Rx Instructions: take one tab BY MOUTH EVERY DAY AT BEDTIME amoxicillin 500 mg capsule 1,000 mg PO TID 3 Days Qty: 18 0RF Discharge Orders: Discharge ED (Routine); Ordered 11/05/22 Ordered By: Juliana Noble Referrals: Rachel Dowell DO [Primary Care Provider] - Discharge Diet: Usual diet Discharge Activity: Resume usual activity Patient Instructions: Food Allergy (ED), Anaphylaxis (ED) Activity Restrictions/Additional Instructions: Continue to closely monitor at home. It is possible to have a rebound response after the medication begins to wear off. If necessary, use your EpiPen from home and return back to the emergency department. Otherwise, I do recommend taking a daily Zyrtec/Claritin/Joyce once a day for the next 3 to 5 days. I also recommend taking Benadryl every 6-8 hours the next 3 days as well. Stand Alone Forms: Work/School Release Coding Level of Care Code ED Biology Manager for Vito Banerjee Exam Comprehensive
[2022-11-05 18:30] VITALS: BP 139/79; PULSE 77; RESP 20; O2SAT 98
[2022-11-05 20:30] VITALS: BP 144/74; PULSE 85; RESP 16; O2SAT 96
[2022-11-05 21:05] VITALS: BP 144/74; PULSE 85; RESP 16; O2SAT 96
== END 2022-11-05 20:30 | disposition home or self-care (01) ==
PROVIDERS: Emergency Provider Physician Assistant; PCP Family Medicine
DX: T78.1XXA Other adverse food reactions, not elsewhere classified, initial encounter (principal)
CPT/HCPCS: 96372; 96374; 96375; 99284; J0171; J1200; J2930; J3490

== ENCOUNTER 2023-01-21 12:04 | Emergency (ER) | payer OTHER, BC, SELFPAY ==
[2023-01-21 12:07] VITALS: BP 138/80; PULSE 72; RESP 15; O2SAT 96
--- NOTE | 2023-01-21 12:12 | W.ED.ALLEREA ---
HPI - Allergic Reaction General: Chief complaint: Allergic Reaction Stated complaint: allergic reaction Time Seen by Provider: 01/21/23 12:06 History of Present Illness: HPI narrative: Patient is a 22-year-old female comes to the ED with allergic reaction. 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 She was at work when one of her fellow coworkers opened up a drink that contained pineapple. 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 She reports feeling some chest heaviness, shortness of breath and throat tightness. She took a dose of Claritin as soon as symptoms started. Denies any other symptoms. Associated symptoms: Deny abdominal pain, nausea or vomiting Review of Systems Const: Denies: fever(s), chills or fatigue Eyes: Denies: change in vision or eye discomfort ENMT: Denies: throat pain, odynophagia, nasal discharge or nasal congestion Card: Denies: chest pain, palpitations, edema, swelling of feet/ankles, dyspnea on exertion or orthopnea Resp: Reports: dyspnea; Denies: productive cough or non-productive cough GI: Denies: abdominal pain, nausea, vomiting, diarrhea, constipation or hematochezia : Denies: flank pain, dysuria or hematuria Musc: Denies: neck pain, back pain or extremity swelling Skin/Breast: Denies: rash or new lesions Neuro: Denies: headache(s), numbness in extremities or weakness in extremities All/Imm: Reports: throat swelling (Throat feels tight) and other (Chest tightness) [facility] ED PFSH: Medical History 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 Dowell Surgical History H/O knee surgery (~12/2019) ACL reconstruction [place] teeth extracted Family History Mother Diabetes Hyperlipidemia Stroke Father Hypertension Denies family history of Colon cancer Ovarian cancer Heart disease Breast cancer Uterine cancer Thyroid disease Physical Exam Const: COMMON NORMALS: patient oriented x3 and alert GENERAL APPEARANCE: cooperative HENMT: COMMON NORMALS: normocephalic HEAD & SCALP: normocephalic MOUTH: Normal oral and palatal mucosa present THROAT: posterior oropharynx normal and uvula midline Neck/C-Spine: COMMON NORMALS: supple GENERAL: Yes normal visual inspection Resp: COMMON NORMALS: normal respiratory effort, No retractions, No use of accessory muscles and clear to auscultation bilaterally AUSCULTATION: clear to auscultation bilaterally Cardio: COMMON NORMALS: regular rate, regular rhythm, S1 normal heart sound present, S2 normal heart sound present, No gallops present (Cardio), No clicks present (Cardio), No murmurs present (Cardio) and Peripheral pulses 2+ throughout RATE: regular rate RHYTHM: regular rhythm HEART SOUNDS: S1 normal heart sound present and S2 normal heart sound present PERIPHERAL PULSES: Peripheral pulses 2+ throughout GI: COMMON NORMALS: Normal to inspection, nondistended, normoactive bowel sounds present, Soft to palpation, non-tender and no masses PALPATION: Yes Soft to palpation : COMMON NORMALS: Yes no CVA tenderness BLADDER/KIDNEY EXAM: Yes no CVA tenderness Back/Pelvis: COMMON NORMALS: no CVA tenderness Extremity: COMMON NORMALS: normal to inspection Neuro: COMMON NORMALS: patient oriented x3 SENSORIUM/ORIENTATION: Yes alert GAIT: Yes Normal gait present Skin: GENERAL SKIN EXAM: dry skin Course ED course: Patient had first dose of epinephrine and her symptoms did not improve. She was given IM Solu-Medrol, p.o. Benadryl, IV fluids and Pepcid and another dose of epinephrine after 20 minutes and her symptoms improved after second dose of epi. Vital Signs: Vital signs: Vital Signs Pulse Rate 93 01/21/23 14:25 Respiratory Rate 20 H 01/21/23 14:25 Blood Pressure 111/69 01/21/23 14:25 Pulse Oximetry 98 01/21/23 14:25 Oxygen Delivery Me thod 01/21/23 13:04 MDM - Allergic Reaction Medical Decision Making Patient is a 22-year-old female comes to the ED with allergic reaction. 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 She was at work when one of her fellow coworkers opened up a drink that contained pineapple. 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 She reports feeling some chest heaviness, shortness of breath and throat tightness. She took a dose of Claritin as soon as symptoms started. Denies any other symptoms. Vitals are stable. Patient had first dose of epinephrine and her symptoms did not improve. She was given IM Solu-Medrol, p.o. Benadryl, IV fluids and Pepcid and another dose of epinephrine after 20 minutes and her symptoms improved after second dose of epi. Patient was monitored for another hour after symptoms started and all her symptoms completely resolved and no rebound reactions. She was stable for discharge home and has EpiPen's at home to use as needed. She was discharged home with a couple day prescription of prednisone. Strict return to ED precautions given. Lab Data Radiology Impressions Chest X-Ray 01/21/23 13:15 IMPRESSION: No acute findings. EKG Data EKG 1: EKG interpretation date: 01/21/23 Interpretation: Sinus rhythm, 70 bpm, no ST segment elevation or depression seen. No arrhythmia noted. Discharge Plan Discharge Patient Disposition: Home Clinical Impression: Allergic reaction Qualifiers: Encounter type: initial encounter Qualified Code(s): T78.40XA - Allergy, unspecified, initial encounter Condition: Stable Prescriptions: New prednisone 20 mg tablet 20 mg PO BID 3 Days Qty: 6 0RF No Action albuterol sulfate [ProAir HFA] 90 mcg/actuation HFA aerosol inhaler 2 puff inhalation 6XD PRN (Reason: shortness of breath or wheezing) Qty: 8.5 0RF acyclovir 400 mg tablet 400 mg PO .COMPLEX Qty: 90 6RF Rx Instructions: 400 mg PO bid for suppression; increase to 800mg TID x 2 days with outbreaks Provera 10 mg tablet 10 mg PO QPM trazodone 50 mg tablet 50 mg PO BEDTIME sertraline 100 mg tablet 200 mg PO QPM Vitamin D3 25 mcg (1,000 unit) Capsule 25 mcg PO DAILY magnesium 200 mg Tablet 200 mg PO DAILY epinephrine [EpiPen 2-Ron] 0.3 mg/0.3 mL auto-injector 0.3 mg IM Q10M PRN (Reason: anaphylaxis) Qty: 2 0RF Rx Instructions: not to exceed 6 doses per episode Discharge Orders: Discharge ED (Routine); Ordered 01/21/23 Ordered By: Paco Turcios Referrals: Rachel Dowell DO [Primary Care Provider] - Discharge Diet: Regular Discharge Activity: Resume usual activity Activity Restrictions/Additional Instructions: Follow-up with medical provider as directed in the next 5 to 7 days for reevaluation. Take medications as prescribed. Use EpiPen's as needed for any future allergic reactions. Return to the ER or your medical provider if condition worsens. Please read and understand discharge instructions. Thank you for choosing [facility] for your healthcare needs today. Please realize this is an emergency room and that we are providing you with a medical screening exam and this may not be complete and all inclusive of all the testing and or work up that you may need to determine your ailment or severity of your illness. It is very important that you follow up as instructed or that you return to the Emergency Department should you have concerns or if your condition changes or worsens in any way. Coding Level of Care Code ED Pole Classifier for Vito Banerjee
[2023-01-21 12:27] VITALS: PULSE 70; O2SAT 98
[2023-01-21] MEDS: diphenhydrAMINE 50 mg Capsule PO (12:27)
[2023-01-21] MEDS: EPINEPHrine 1 mg/mL INJ 0.3 MG IM ×2 (12:27→13:01)
[2023-01-21] MEDS: sodium chloride 0.9% 500 ML 999 ML IV (13:01)
[2023-01-21] MEDS: famotidine 20 mg/2 mL INJ 40 MG IVP (13:01)
[2023-01-21 13:04] VITALS: PULSE 94; RESP 13; O2SAT 98
--- NOTE | 2023-01-21 13:08 | ECG_ITS ---
[facility] Test Date: 2023-01-21 Pat Name: Jenifer Mccullough Department: Room: Gender: Female Camera Technician: : 2000 Requested By: Paco Turcios Order Number: [id number] Rubio MD: Yobani Valencia M.D. Measurements Intervals [place] Rate: 79 P: 50 WA: 175 QRS: 47 QRSD: 106 T: 33 QT: 412 QTc: 475 Interpretive Statements SINUS RHYTHM NONSPECIFIC T-WAVE ABNORMALITY Compared to ECG 05/20/2022 02:21:41 T-wave abnormality now present Sinus arrhythmia no longer present Electronically Signed On 01-21-2023 21:44:56 MANAGER LVN by Yobani Valencia M.D. [id number]
--- NOTE | 2023-01-21 13:15 | XRR_ITS ---
PROCEDURE INFORMATION: Exam: XR Chest Exam date and time: 01/21/2023 1:19 PM Age: 22 years old Clinical indication: Shortness of breath; Patient HX: History--sob, pressure, started today; Additional info: Chest heavy, SOB TECHNIQUE: Imaging protocol: Radiologic exam of the chest. Views: 1 view. COMPARISON: CR XR chest 1V portable [id number] 08/03/2022 7:51 AM FINDINGS: Lungs: Unremarkable. No consolidation. Pleural spaces: Unremarkable. No pleural effusion. No pneumothorax. Heart/Mediastinum: Unremarkable. No cardiomegaly. Bones/joints: Unremarkable. XR/XR chest 1V portable [id number] IMPRESSION: No acute findings.
[2023-01-21 14:25] VITALS: BP 111/69; PULSE 93; RESP 20; O2SAT 98
== END 2023-01-21 14:26 | disposition home or self-care (01) ==
PROVIDERS: Emergency Provider Physician Assistant; PCP Family Medicine
DX: T78.1XXA Other adverse food reactions, not elsewhere classified, initial encounter (principal)
CPT/HCPCS: 71045; 93005; 96372; 96374; 99284; J0171; J2930; J3490; J7040; Q0163

== ENCOUNTER → 2023-02-22 10:00 | Outpatient (BNVA) | payer OTHER, BC, SELFPAY | PROVIDERS: PCP Family Medicine; Visit Provider Nurse Practitioner Women's Health | DX: Z32.00 Encounter for pregnancy test, result unknown (principal); E28.2 Polycystic ovarian syndrome | CPT/HCPCS: 84702 ==

== ENCOUNTER 2023-02-25 05:42 | Outpatient (CLI) | payer OTHER, BC, SELFPAY ==
[2023-02-25 06:25] LABS: Alanine Aminotransferase 21 U/L (0-33); Albumin Level 4.4 g/dL (3.5-5.2); Alkaline Phosphatase 65 U/L (35-105); Chloride 105 mmol/L (98-107); Chol HDL Ratio 3.58 mg/dL (0.0-4.40); Cholesterol 161 mg/dL (0-200); LDL Cholesterol Calculated 80 mg/dL (50-129); LDL HDL Ratio 1.78 RATIO (0.00-3.22); Potassium 3.8 mmol/L (3.5-5.1); Sodium 141 mmol/L (136-145)
[2023-02-25 06:29] LABS: Estmated Average Glucose 111; Hemoglobin A1C 5.5 % (4.0-6.0)
[2023-02-25 06:33] LABS: Anion Gap 17.9 (5-19); Aspartate Amino Transferase 19 U/L (0-32); Blood Urea Nitrogen 10 mg/dL (6-20); Calcium 9.3 mg/dL (8.5-10.5); Carbon Dioxide 22 mmol/L (22-29); Globulin 3.2 g/dL (1.3-4.6); Glomerular Filtration Rate 106.7 mL/min (90-130); Glucose 92 mg/dL (65-115); HDL Cholesterol 46 mg/dL (60-100); Osmolality Calculated 291 mOsm/kg (285-295); Total Bilirubin 0.4 mg/dL (0.15-1.2); Total Protein 7.5 g/dL (6.6-8.7); Triglycerides 177 mg/dL (0-150)
== END 2023-02-25 05:43 | disposition home or self-care (01) ==
LOC: LAB 05:45
PROVIDERS: PCP Family Medicine; Visit Provider Nurse Practitioner Women's Health
DX: E28.2 Polycystic ovarian syndrome (principal)
CPT/HCPCS: 36415; 80053; 80061; 83036

== ENCOUNTER → 2024-02-16 11:21 | Outpatient (BNVA) | payer BC, SELFPAY | PROVIDERS: PCP Family Medicine; Visit Provider Family Medicine | DX: F41.1 Generalized anxiety disorder (principal); F51.04 Psychophysiologic insomnia; L65.9 Nonscarring hair loss, unspecified | CPT/HCPCS: 84443 ==

== ENCOUNTER → 2024-02-23 13:24 | Outpatient (BNVA) | payer BC, SELFPAY | PROVIDERS: PCP Family Medicine; Visit Provider Nurse Practitioner Women's Health | DX: Z12.4 Encounter for screening for malignant neoplasm of cervix (principal); E28.2 Polycystic ovarian syndrome; Z01.419 Encounter for gynecological examination (general) (routine) without abnormal findings | CPT/HCPCS: 82306; 83036; 84439; 84702; 88175 ==

== ENCOUNTER → 2024-03-12 10:54 | Outpatient (BNVA) | payer BC, SELFPAY | PROVIDERS: PCP Family Medicine; Visit Provider Nurse Practitioner Women's Health | DX: N92.6 Irregular menstruation, unspecified (principal); E28.2 Polycystic ovarian syndrome | CPT/HCPCS: 76830 ==

== ENCOUNTER 2024-10-04 11:49 | Emergency (ER) | payer BC, SELFPAY ==
[2024-10-04 11:54] VITALS: BP 137/90; PULSE 98; RESP 18; TEMP 36.7; O2SAT 98; BMI 36.9
[2024-10-04 12:20] VITALS: BP 130/86; PULSE 86; RESP 18; O2SAT 96
--- NOTE | 2024-10-04 12:39 | W.ED.ALLEREA ---
HPI - Allergic Reaction General: Chief complaint: Allergic Reaction Stated complaint: allergic reaction Time Seen by Provider: 10/04/24 12:12 Source: patient Mode of arrival: ambulatory Limitations: no limitations History of Present Illness: HPI narrative: 24-year-old female states she has a history of allergic reaction states he is very allergic to pineapple and accidentally ate a piece of a pineapple states that this happened roughly an hour before arrival she states she felt itchy and having some dyspnea she has an EpiPen attempted give herself a shot and accidentally gave it to her right thumb some some slight pain in her right thumb she states her dyspnea and itchiness has improved. Associated symptoms: Deny abdominal pain, nausea or vomiting Related Data Home Medications Medication Instructions Recorded Confirmed docosahexaenoic acid 200 mg 200 mg PO DAILY 01/04/24 10/04/24 capsule ( DHA) metformin 500 mg tablet See Rx Instructions .Route .COMPLEX 10/04/24 10/04/24 sertraline 100 mg tablet 100 mg PO DAILY 10/04/24 10/04/24 trazodone 50 mg tablet 50 mg PO BEDTIME 10/04/24 10/04/24 Previous Rx's Medication Instructions Recorded epinephrine 0.3 mg/0.3 mL 0.3 mg (0.3 mL) IM Q10M PRN 11/05/22 injection, auto-injector (EpiPen anaphylaxis #2 ea 2-Ron) medroxyprogesterone 10 mg tablet See Rx Instructions .Route 03/09/24 .COMPLEX #14 tabs acyclovir 400 mg tablet See Rx Instructions .Route 04/03/24 .COMPLEX #90 tabs Allergies Allergy/AdvReac Type Severity Reaction Status Date / Time pineapple Allergy Severe tongue Verified 10/04/24 11:57 swelling, breathing difficulty COVID-19 (SARS-CoV-2) Allergy Unknown Verified 10/04/24 11:57 vaccine, lanny Review of Systems Const: Denies: fever(s), chills, body aches or change in appetite ENMT: Denies: throat pain or dental pain Card: Denies: chest pain Resp: Reports: dyspnea GI: Denies: abdominal pain, nausea, vomiting or diarrhea : Denies: dysuria Musc: Denies: neck pain or back pain Skin/Breast: Reports: pruritus Neuro: Denies: headache(s) PFSH ED PFSH: Medical History No pertinent past medical history neghx: htn,dm,thyroid,dvt/pe PCP: Dr. 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 Surgical History [place] teeth extracted H/O knee surgery (~12/2019) ACL reconstruction Family History Mother Diabetes Hyperlipidemia Stroke Father Hypertension Denies family history of Colon cancer Ovarian cancer Heart disease Breast cancer Uterine cancer Thyroid disease Female Reproductive History: Date of last menstrual period: 10/04/24 Physical Exam Const: COMMON NORMALS: no acute distress, patient oriented x3 and healthy appearing HENMT: COMMON NORMALS: normocephalic and atraumatic HEAD & SCALP: normocephalic and atraumatic Eye: COMMON NORMALS: Equal, round and reactive pupils present and EOMs intact bilaterally PUPIL: Yes Equal, round and reactive pupils present Neck/C-Spine: COMMON NORMALS: full ROM and supple Chest: COMMONS NORMALS: normal inspection of the chest and normal palpation of entire chest wall Resp: COMMON NORMALS: normal respiratory effort, No retractions, No use of accessory muscles and clear to auscultation bilaterally AUSCULTATION: clear to auscultation bilaterally Cardio: COMMON NORMALS: regular rate, regular rhythm and No murmurs present (Cardio) RATE: regular rate RHYTHM: regular rhythm Extremity: COMMON NORMALS: normal to inspection and full ROM Neuro: COMMON NORMALS: patient oriented x3, moves all extremities and no focal motor deficits Psych: COMMON NORMALS: mental status grossly normal, Normal thought process present and cooperative THOUGHT PROCESS: Normal thought process present Skin: COMMON NORMALS: no rashes or lesions noted and no wounds GENERAL SKIN EXAM: no rashes or lesions noted Course Vital Signs: Vital signs: Vital Signs Temperature 98.0 F 10/04/24 11:54 Pulse Rate 81 10/04/24 13:11 Respiratory Rate 16 10/04/24 13:11 Blood Pressure 123/67 10/04/24 13:11 Pulse Oximetry 97 10/04/24 13:11 Oxygen Delivery Me thod Room Air 11/14/24 11:54 MDM - Allergic Reaction Medical Decision Making Patient presents here with an allergic reaction she has been well-appearing here did observe her thumb here is well-appearing she stable for discharge she has another EpiPen at home she is followed with PCP and return if worsening. Medical Records I reviewed the patient's medical records. All radiology interpretation(s) finalized by discharge Discharge Plan Discharge Patient Disposition: Home Clinical Impression: Allergic reaction Condition: Stable Prescriptions: No Action DHA 200 mg capsule 200 mg PO DAILY medroxyprogesterone 10 mg tablet See Rx Instructions .ROUTE .COMPLEX Qty: 14 12RF Dose Instruction: TAKE 1 TABLET BY MOUTH EVERY DAY FOR 14 DAYS EACH MONTH. OFF FOR 16 DAYS TO ALLOW CYCLE Rx Instructions: TAKE 1 TABLET BY MOUTH EVERY DAY FOR 14 DAYS EACH MONTH. OFF FOR 16 DAYS TO ALLOW CYCLE acyclovir 400 mg tablet See Rx Instructions .ROUTE .COMPLEX Qty: 90 3RF Dose Instruction: TAKE 1 TABLET BY MOUTH TWICE DAILY FOR SUPRESSION. INCREASE TO TWO TABLETS THREE TIMES DAILY FOR TWO DAYS FOR OUTBREAKS Rx Instructions: TAKE 1 TABLET BY MOUTH TWICE DAILY FOR SUPRESSION. INCREASE TO TWO TABLETS THREE TIMES DAILY FOR TWO DAYS FOR OUTBREAKS epinephrine [EpiPen 2-Ron] 0.3 mg/0.3 mL auto-injector 0.3 mg IM Q10M PRN (Reason: anaphylaxis) Qty: 2 0RF Rx Instructions: not to exceed 6 doses per episode metformin 500 mg tablet See Rx Instructions .ROUTE .COMPLEX Rx Instructions: Take 1 tablet by mouth in the morning and 2 tablets in the evening. trazodone 50 mg tablet 50 mg PO BEDTIME sertraline 100 mg tablet 100 mg PO DAILY Discharge Orders: Discharge ED (Routine); Ordered 10/04/24 Ordered By: Christina Larson Referrals: Rachel Dowell DO [Primary Care Provider] - 4-7 days Discharge Diet: Advance as tolerated Discharge Activity: Resume usual activity Patient Instructions: General Allergic Reaction (ED) Coding Level of Care Code ED Residential Living Assistant for Vito Banerjee
[2024-10-04] MEDS: diphenhydrAMINE 50 mg/mL SDV 1mL IVP (12:48)
[2024-10-04] MEDS: methylPREDNISolone sod succ 125 mg/2 mL INJ IVP (12:48)
[2024-10-04 12:52] VITALS: BP 113/76; PULSE 97; RESP 13; O2SAT 96
[2024-10-04 13:11] VITALS: BP 123/67; PULSE 81; RESP 16; O2SAT 97
[2024-10-04 14:03] VITALS: BP 123/72; PULSE 88; RESP 17; O2SAT 94
== END 2024-10-04 14:15 | disposition home or self-care (01) ==
PROVIDERS: Emergency Provider Emergency Medicine; PCP Family Medicine
DX: T78.1XXA Other adverse food reactions, not elsewhere classified, initial encounter (principal); X58.XXXA Exposure to other specified factors, initial encounter; Z79.84 Long term (current) use of oral hypoglycemic drugs
CPT/HCPCS: 96374; 96375; 99285; J1200; J2919

== ENCOUNTER → 2024-10-05 08:52 | Outpatient (BNVA) | payer BC, SELFPAY | PROVIDERS: PCP Family Medicine; Visit Provider Nurse Practitioner Women's Health | DX: E28.2 Polycystic ovarian syndrome (principal); Z31.9 Encounter for procreative management, unspecified | CPT/HCPCS: 84144 ==